=== PATIENT | female | born 1985 | race American Indian/Alaskan Native ===

== ENCOUNTER 2021-11-04 14:42 | Emergency (ER) | payer SELFPAY ==
[2021-11-04 17:27] VITALS: BP 113/72
[2021-11-04] MEDS ORDERED: ONDANSETRON 4 MG ODT TAB PO ONE (18:04)
[2021-11-04] MEDS ORDERED: HYDROcodone/ACETAMINOPHEN 5-325 MG TAB PO ONE (18:04)
--- NOTE | 2021-11-04 18:04 | Emergency Department Report ---
ED Female HPI - General Chief complaint: Urogenital-Female Stated complaint: PELVIC PAIN Time Seen by Provider: 11/04/21 17:47 Source: patient Mode of arrival: Ambulatory Limitations: No Limitations - History of Present Illness Initial comments: 36-year-old female presents to the ER today with complaints of severe pelvic pain. She states that it started around 1:20 PM today. She described as a sharp crampy pain which has been constant. She states that is worse when she walks and stands up straight. She states that the pain feels similar to when she had a ruptured cyst about 4 years ago. She denies any abnormal vaginal bleeding or discharge. She has noticed her urine odor but no dysuria, hematuria or any other UTI symptoms. She reports nausea but no vomiting. She denies any bowel changes. Last menstrual cycle was 10/10/2021. She is not currently on control. She has never been before in the past. She denies any abdominal surgeries or pelvic surgeries in the past. She reports same sexual partner MD Complaint: pelvic pain -: This afternoon - Related Data Previous Rx's Medication Instructions Recorded Last Taken Type Acetaminophen/Codeine [Tylenol 1 tab PO Q6H PRN #12 tab 11/04/21 Unknown Rx /Codeine # 3 tab] Ketorolac [Toradol] 10 mg PO Q6H PRN #20 tab 11/04/21 Unknown Rx Ondansetron [Zofran Odt] 4 mg PO Q8HR PRN #15 tab.rapdis 11/04/21 Unknown Rx Allergies Allergy/AdvReac Type Severity Reaction Status Date / Time No Known Allergies Allergy Unverified 11/04/21 17:27 ED Review of Systems ROS: Stated complaint: PELVIC PAIN Other details as noted in HPI Comment: All other systems reviewed and negative Eyes: denies: eye pain, eye discharge, vision change ENT: denies: ear pain, throat pain Respiratory: denies: cough, shortness of breath, SOB with exertion, SOB at rest, wheezing Gastrointestinal: abdominal pain, nausea, other (Pelvic pain). denies: vomiting, diarrhea, constipation, hematemesis, hematochezia Genitourinary: other (Urine ordered). denies: urgency, dysuria, frequency, hematuria, discharge, abnormal menses, dyspareunia Musculoskeletal: denies: back pain, joint swelling, arthralgia, myalgia Skin: denies: rash, lesions, change in color, change in hair/nails, pruritus Neurological: denies: headache, weakness, numbness, paresthesias, confusion, abnormal gait, vertigo Psychiatric: denies: anxiety, depression, auditory hallucinations, visual hallucinations, homicidal thoughts, suicidal thoughts Hematological/Lymphatic: denies: easy bleeding, easy bruising, swollen glands ED Past Medical Hx - Social History Smoking Status: Never Smoker - Medications Home Medications: Home Medications Medication Instructions Recorded Confirmed Last Taken Type Acetaminophen/Codeine [Tylenol 1 tab PO Q6H PRN #12 tab 11/04/21 Unknown Rx /Codeine # 3 tab] Ketorolac [Toradol] 10 mg PO Q6H PRN #20 tab 11/04/21 Unknown Rx Ondansetron [Zofran Odt] 4 mg PO Q8HR PRN #15 tab.rapdis 11/04/21 Unknown Rx ED Physical Exam - General Limitations: No Limitations General appearance: alert, in distress, other (Appears uncomfortable and in pain) - Neck Neck exam: Present: normal inspection, full ROM - Respiratory Respiratory exam: Present: normal lung sounds bilaterally. Absent: respiratory distress, wheezes, rales, rhonchi - Cardiovascular Cardiovascular Exam: Present: regular rate, normal rhythm, normal heart sounds - GI/Abdominal GI/Abdominal exam: Present: soft, tenderness (mild RLQ and LLQ but moderate suprapubic with some guarding). Absent: distended, rebound, rigid - External exam: Present: normal external exam Speculum exam: Present: vaginal discharge (small amt of thick white yellow d/c). Absent: erythema, vaginal bleeding, foreign body, tissue, laceration Bi-manual exam: Present: adnexal tenderness (Mild left and right ). Absent: cervical motion tendernes, adnexal mass, uterine enlargement, uterine tenderness - Neurological Exam Neurological exam: Present: alert, oriented X3, CN II-XII intact, normal gait - Psychiatric Psychiatric exam: Present: normal affect, normal mood - Skin Skin exam: Present: intact ED Course Vital Signs 11/04/21 17:24 Temperature 98.4 F Pulse Rate 82 Respiratory 18 Rate Blood Pressure 113/72 O2 Sat by Pulse 98 Oximetry ED Medical Decision Making - Lab Data Result diagrams: 11/04/21 18:46 11/04/21 18:46 - Radiology Data Radiology results: report reviewed Patient Name: GÓMEZ HADLEY Gender: Female Date of : 1985 Home Phone: Referring Provider: SHAUNNA RUBIO Organization: [facility] Accession Number: [id number] Requested Date: November 04, 2021 18:04 Report Status: Final Requested Procedure: 1 Procedure Description: US pelvic complete Modality: US Findings Reporting MD: Jorgito Marin Dictation Time: November 04, 2021 18:38 Economic Development Specialist: Not available [facility] Lab Technician Date: TRANSABDOMINAL PELVIC ULTRASOUND INDICATION / CLINICAL INFORMATION: Severe pelvic pain. COMPARISON: None available. FINDINGS: The uterus measures approximately 8.5 x 4.7 x 5.5 cm. The endometrial stripe measures 11.2 mm AP. No fibroids are seen. The right ovary measures 4.3 x 2.9 x 3.3 cm. The left ovary measures 6.3 x 4.5 x 5.2 cm. There is a 4.3 cm simple left ovarian cyst. Normal blood flow is present to both ovaries on Doppler exam. No free fluid is present. The urinary bladder is collapsed and not well evaluated. IMPRESSION: 4.3 cm simple follicular cyst in the left ovary. No evidence of ovarian torsion or other abnormality. Signer Name: Jorgito Marin MD Signed: 11/04/2021 6:38 PM Workstation Name: [id number] - Medical Decision Making 2017: Patient appears to be feeling much better after meds. She is sitting in the recliner, resting comfortably and is not in any acute distress. Repeat abdominal exam shows a soft nontender abdomen. She had some adnexal tenderness on exam but no adnexal swelling, no CMT nor friable cervix on exam she is currently not toxic or ill-appearing. CBC and CMP unremarkable. hCG is negative. Urinalysis negative for UTI. Wet prep negative for Trichomonas, yeast or BV per verbal report from Dariela in lab. Pelvic exam shows that she has a 4.3 cm left ovarian cyst but no evidence of torsion or any other abnormalities. Discussed results with patient. At this time there is no indication for any additional testing such as a CT, emergent surgical or gynecological consult or admission at this time. Recommend she follows up with her PROC[employer] MANUFACT[employer]ING ENGINEER. Patient expressed understanding and agree with plan. Patient was stable at time of discharge. Critical care attestation.: If time is entered above; I have spent that time in minutes in the direct care of this critically ill patient, excluding procedure time. ED Disposition Clinical Impression: Ovarian cyst, Pelvic pain Disposition: 01 HOME / SELF CARE / HOMELESS Is pt being admited?: No Does the pt Need Aspirin: No Condition: Stable Instructions: Pelvic Pain, Female, Ovarian Cyst, [id number] Additional Instructions: I recommend that you take the Toradol and the Tylenol threes as prescribed to help your pain. Take the Zofran for any nausea or vomiting. Follow-up with your PROCESS MANUFACTURING ENGINEER this week. Return to the ER if your symptoms changes or worsens in any way Prescriptions: Ketorolac [Toradol] 10 mg PO Q6H PRN #20 tab PRN Reason: Pain Acetaminophen/Codeine [Tylenol /Codeine # 3 tab] 1 tab PO Q6H PRN #12 tab PRN Reason: Pain , Severe (7-10) Ondansetron [Zofran Odt] 4 mg PO Q8HR PRN #15 tab.rapdis PRN Reason: Nausea Referrals: [facility] [Provider Group] - 3-5 Days Forms: Work/School Release Form(ED) Time of Disposition: 20:14
[2021-11-04 19:16] LABS: Hyaline Casts,Urine 1 /LPF; Mucus,Urine FEW /HPF; WBC,Urine < 1.0 /HPF (0.0-6.0)
[2021-11-04 19:21] LABS: Bilirubin,Urine Negative (Negative); Color,Urine Yellow (Yellow)
[2021-11-04 19:22] LABS: Blood,Urine Negative (Negative)
[2021-11-04 19:23] LABS: Protein,Urine <15 mg/dL mg/dL (Negative)
[2021-11-04 19:33] LABS: Basophils % (Auto) 0.3 % (0.0-1.8); Eosinophils # (Auto) 0.1 K/mm3 (0.0-0.4); Eosinophils % (Auto) 1.2 % (0.0-4.3); Hematocrit 36.8 % (30.3-42.9); Lymphocytes # (Auto) 1.7 K/mm3 (1.2-5.4); Lymphocytes % (Auto) 25.3 % (13.4-35.0); Mean Corpuscular HGB Conc 33 % (30-34); Mean Corpuscular Volume 92 fl (79-97); Monocytes # (Auto) 0.5 K/mm3 (0.0-0.8); Monocytes % (Auto) 7.3 % (0.0-7.3); Platelet Count 235 K/mm3 (140-440); Red Blood Count 4.01 M/mm3 (3.65-5.03); Red Cell Distribution Width 14.5 % (13.2-15.2)
[2021-11-04 19:57] LABS: Alanine Aminotransferase 13 units/L (7-56); Albumin 4.1 g/dL (3.9-5); BUN/Creatinine Ratio 19; Blood Urea Nitrogen 17 mg/dL (7-17); Calcium 8.7 mg/dL (8.4-10.2); Hemolysis Index 5
--- NOTE | 2021-11-04 23:54 | Ultrasound Report ---
TRANSABDOMINAL PELVIC ULTRASOUND INDICATION / CLINICAL INFORMATION: Severe pelvic pain. COMPARISON: None available. FINDINGS: The uterus measures approximately 8.5 x 4.7 x 5.5 cm. The endometrial stripe measures 11.2 mm AP. No fibroids are seen. The right ovary measures 4.3 x 2.9 x 3.3 cm. The left ovary measures 6.3 x 4.5 x 5.2 cm. There is a 4 .3 cm simple left ovarian cyst. Normal blood flow is present to both ovaries on Doppler exam. No free fluid is present. The urinary bladder is collapsed and not well evaluated. IMPRESSION: 4.3 cm simple follicular cyst in the left ovary. No evidence of ovarian torsion or other abnormality. Signer Name: Jorgito Marin MD Signed: 11/04/2021 7:38 PM Workstation Name: [id number]
== END 2021-11-04 20:20 | disposition home or self-care (01) ==
LOC: ED 14:42
DX: N83.209 Unspecified ovarian cyst, unspecified side (principal); R10.2 Pelvic and perineal pain
CPT/HCPCS: 36415; 76856; 80053; 81001; 84703; 85025; 87210; 99284; J3490; Q0162